=== PATIENT | male | born 2000 | race African-American/Black ===

== ENCOUNTER 2024-04-05 18:09 | Emergency (ER) | payer SELFPAY ==
[~2024-04-05] VITALS: Ht 172.7 cm; Wt 75.0 kg
[2024-04-05 18:17] VITALS: O2SAT 100
[2024-04-05] MEDS: IBUPROFEN 400MG TABLET PO ONE (20:17)
[2024-04-05] MEDS: LIDOCAINE HCL/PF 1% 10 MG/ML 5ML VIAL INFIL ONE (20:17)
[2024-04-05] MEDS: HYDROCODONE/ACETAMINOPHEN 5/325MG TABLET PO ONE (20:18)
[2024-04-05] MEDS ORDERED: HYDR-4001 MT (22:12)
[2024-04-05] MEDS ORDERED: IBUP-2028 MT (22:12)
[2024-04-05 22:26] VITALS: BP 134/55; PULSE 80; RESP 18; TEMP 36.83628; O2SAT 100
== END 2024-04-05 23:08 | disposition home or self-care (01) ==
LOC: ER 18:09
DX: S62.304A Unspecified fracture of fourth metacarpal bone, right hand, initial encounter for closed fracture (principal); S62.306A Unspecified fracture of fifth metacarpal bone, right hand, initial encounter for closed fracture; J45.909 Unspecified asthma, uncomplicated; W01.0XXA Fall on same level from slipping, tripping and stumbling without subsequent striking against object, initial encounter; Y93.89 Activity, other specified; Y92.89 Other specified places as the place of occurrence of the external cause; Y99.8 Other external cause status
CPT/HCPCS: 73110; 73120; 73130; 26605; 99284; J3490; Z7610 ×2; A4565